=== PATIENT | male | born 1970 | race Caucasian/White ===

== ENCOUNTER 2025-03-15 06:32 | Day surgery (SDC) | payer OTHER, SELFPAY | END 2025-03-15 12:00 | disposition home or self-care (01) | LOC: GI 06:32 | PROVIDERS: ATTENDING PHYSICIAN Internal Medicine Gastroenterology | DX: R13.14 Dysphagia, pharyngoesophageal phase (principal); R07.89 Other chest pain; R12 Heartburn; K22.89 Other specified disease of esophagus | CPT/HCPCS: 43239; 88305 ==

== ENCOUNTER 2025-05-17 06:24 | Day surgery (SDC) | payer OTHER, SELFPAY | END 2025-05-17 10:16 | disposition home or self-care (01) | LOC: GI 06:24 | PROVIDERS: ATTENDING PHYSICIAN Internal Medicine Gastroenterology | DX: Z12.11 Encounter for screening for malignant neoplasm of colon (principal); K57.30 Diverticulosis of large intestine without perforation or abscess without bleeding; K64.8 Other hemorrhoids; K63.5 Polyp of colon; K31.89 Other diseases of stomach and duodenum; Z86.0101 Personal history of adenomatous and serrated colon polyps; Z83.719 Family history of colon polyps, unspecified; Z80.0 Family history of malignant neoplasm of digestive organs | CPT/HCPCS: 45385; 88305 ==